=== PATIENT | male | born 1955 | race Caucasian/White ===

== ENCOUNTER 2019-09-17 17:51 | Emergency (ER) | payer BC, OTHER ==
--- NOTE | 2019-09-17 18:10 | ER Document Report ---
ED Medical Screen (RME) - General Chief Complaint: Chest Pain Stated Complaint: CHEST PAIN,NECK PAIN,ABDOMINAL PAIN Time Seen by Provider: 09/17/19 18:05 Primary Care Provider: NAY DE LEÓN NP [Primary Care Provider] - Follow up as needed Mode of Arrival: Ambulatory Information source: Patient Notes: 64-year-old male presented to ED for complaint of chest pain x2 hours and abdominal pain for the last 3 days. He states the chest pain is epigastric a level 2/5 and achy. His upper abdominal pain is a 5 to get worse sometimes. It is in the upper abdomen. He denies any nausea or vomiting. He states the chest pain radiates up to the neck on the left side. He has had 4 cardiac cath and 3 cardiac stents he has a history of high blood pressure cholesterol and reflux. He states his sister at age 72 for cardiac complications. States he has a heavy family history of cardiac problems. States he took Mylanta before coming to the emergency room with no relief. I have greeted and performed a rapid initial assessment of this patient. A comprehensive ED assessment and evaluation of the patient, analysis of test results and completion of medical decision making process will be conducted by an additional ED providers. - Related Data Allergies/Adverse Reactions: No Known Allergies Allergy (Verified 02/25/13 09:58) Past Medical History - Past Medical History Cardiac Medical History: Reports: Hx Atrial Fibrillation, Hx Coronary Artery Disease, Hx Hypercholesterolemia, Hx Hypertension Traumatic Medical History: Reports: Hx Fractures - left wrist Past Surgical History: Reports: Hx Cardiac Catheterization - 3 stents, Hx Orthopedic Surgery - left and right hip replacement - Immunizations Hx Diphtheria, Pertussis, Tetanus Vaccination: No Doctor's Discharge - Discharge Referrals: NAY DE LEÓN NP [Primary Care Provider] - Follow up as needed
[2019-09-17] MEDS ORDERED: ASPIRIN 81 MG TABLET, CHEWABLE PO ONE (18:11)
[2019-09-17] MEDS ORDERED: ASPIRIN 81 MG TABLET, CHEWABLE ONE (18:11)
[2019-09-17 18:49] LABS: ABSOLUTE EOSINOPHILS # (AUTO) 0.2 10^3/uL (0.0-0.6); ABSOLUTE LYMPHOCYTES (AUTO) 1.5 10^3/uL (0.5-4.7); ABSOLUTE MONOCYTES (AUTO) 0.9 10^3/uL (0.1-1.4); ABSOLUTE NEUT (AUTO) 5.9 10^3/uL (1.7-8.2); BASOPHILS % (AUTO) 0.6 % (0-2); EOSINOPHILS % (AUTO) 2.2 % (0-6); HEMATOCRIT 46.4 % (37.9-51.0); LYMPHOCYTES % (AUTO) 17.8 % (13-45); MEAN CORPUSCULAR HEMOGLOBIN 33.7 pg (27.0-33.4); MEAN CORPUSCULAR HGB CONC 34.4 g/dL (32.0-36.0); MEAN CORPUSCULAR VOLUME 98 fl (80-97); MONOCYTES % (AUTO) 10.5 % (3-13); PLATELET COUNT 206 10^3/uL (150-450); RED BLOOD COUNT 4.74 10^6/uL (4.35-5.55); RED CELL DISTRIBUTION WIDTH 13.3 % (11.5-14.0); SEGMENTED NEUTROPHILS % (AUTO) 68.9 % (42-78); TOTAL CELLS COUNTED % (AUTO) 100 %; WHITE BLOOD COUNT 8.6 10^3/uL (4.0-10.5)
[2019-09-17 19:07] LABS: ALBUMIN 4.2 g/dL (3.5-5.0); ALKALINE PHOSPHATASE 106 U/L (38-126); ANION GAP 9 (5-19); ASPARTATE AMINO TRANSFERASE 29 U/L (17-59); BILIRUBIN,DIRECT 0.1 mg/dL (0.0-0.4); BILIRUBIN,TOTAL 0.5 mg/dL (0.2-1.3); BLOOD UREA NITROGEN 19 mg/dL (7-20); CALCIUM 9.3 mg/dL (8.4-10.2); CARBON DIOXIDE 30 mmol/L (22-30); CHLORIDE 99 mmol/L (98-107); GLUCOSE 110 mg/dL (75-110); POTASSIUM 4.7 mmol/L (3.6-5.0); TOTAL PROTEIN 7.3 g/dL (6.3-8.2)
--- NOTE | 2019-09-17 19:20 | RADIOLOGY REPORT (SQ) ---
EXAM DESCRIPTION: CHEST SINGLE VIEW COMPLETED DATE/TIME: 09/17/2019 7:02 pm REASON FOR STUDY: chest pain COMPARISON: AP chest 09/09/2013, 07/27/2010 EXAM PARAMETERS: NUMBER OF VIEWS: One view. TECHNIQUE: Single frontal radiographic view of the chest acquired. RADIATION DOSE: NA LIMITATIONS: Lordotic portable chest film FINDINGS: LUNGS AND PLEURA: No opacities, masses or pneumothorax. No pleural effusion. MEDIASTINUM AND HILAR STRUCTURES: No masses. Contour normal. HEART AND VASCULAR STRUCTURES: Heart normal in size. Normal vasculature. BONES: Old right clavicle fracture HARDWARE: None in the chest. OTHER: No other significant finding. IMPRESSION: NO ACUTE RADIOGRAPHIC FINDING IN THE CHEST. TECHNICAL DOCUMENTATION: JOB ID: [id number] [employer]- All Rights Reserved Reading location - IP/workstation name: [email or web address]
[2019-09-17] MEDS ORDERED: HYDROMORPHONE HCL INJ/PF 2 MG/ML AMPULE IV ONE ×2 (19:30→20:18)
[2019-09-17] MEDS ORDERED: ONDANSETRON HCL INJ/PF 4 MG/2 ML SDV IV ONE (19:30)
[2019-09-17] MEDS ORDERED: NORMAL SALINE 1000 ML 1,000 ML IV ONE ×3 (19:30→22:34)
--- NOTE | 2019-09-17 21:06 | ER Document Report ---
ED General - General Mode of Arrival: Ambulatory - Related Data Home Medications: see med list <JEFF RUSHING - Last Filed: 09/17/19 21:03> <AMY JEFFERS - Last Filed: 09/18/19 04:28> - General Chief Complaint: Chest Pain Stated Complaint: CHEST PAIN,NECK PAIN,ABDOMINAL PAIN Time Seen by Provider: 09/17/19 18:05 Primary Care Provider: NAY DE LEÓN NP [Primary Care Provider] - Follow up as needed Notes: 64-year-old male presents emergency department complaining of severe right upper quadrant abdominal pain starting Wednesday but worsening and radiating to his chest starting today. Patient states that it worsens with all foods, it decreases with rest and is not associated with any nausea, vomiting or fevers, is unrelieved by Mylanta. Patient does have a cardiac history and this does not feel similar to the symptoms he was having prior to getting any of his stents, has never had an actual [place]. (JEFF RUSHING) - Related Data Allergies/Adverse Reactions: pregabalin [From Lyrica] Allergy (Verified 09/17/19 18:14) Hallucinations Past Medical History - General Information source: Patient - Social History Smoking Status: Never Smoker Frequency of alcohol use: Social Drug Abuse: None Family History: None Patient has suicidal ideation: No Patient has homicidal ideation: No - Past Medical History Cardiac Medical History: Reports: Hx Atrial Fibrillation, Hx Coronary Artery Disease, Hx Hypercholesterolemia, Hx Hypertension Traumatic Medical History: Reports: Hx Fractures - left wrist Past Surgical History: Reports: Hx Cardiac Catheterization - 3 stents, Hx Orthopedic Surgery - left and right hip replacement - Immunizations Hx Diphtheria, Pertussis, Tetanus Vaccination: No <JEFF RUSHING - Last Filed: 09/17/19 21:03> Review of Systems - Review of Systems Constitutional: No symptoms reported Cardiovascular: See HPI, Chest pain Respiratory: No symptoms reported Gastrointestinal: See HPI, Abdominal pain. denies: Nausea, Vomiting -: Yes All other systems reviewed and negative <JEFF RUSHING - Last Filed: 09/17/19 21:03> Physical Exam - Vital signs Interpretation: Hypertensive <JEFF RUSHING - Last Filed: 09/17/19 21:03> <AMY JEFFERS - Last Filed: 09/18/19 04:28> - Vital signs Vitals: Temp Pulse Resp BP Pulse Ox 97.6 F 72 16 151/81 H 99 09/17/19 18:01 09/17/19 18:01 09/17/19 18:01 09/17/19 18:01 09/17/19 18:01 - Notes Notes: GENERAL: Alert, interacts well. No acute distress until he sits up and bends forward and then he has pain. HEAD: Normocephalic, atraumatic EYES: Pupils equal, round and reactive to light, extraocular movements intact. ENT: Oral mucosa moist, tongue midline. NECK: Full range of motion, supple, trachea midline. LUNGS: Clear to auscultation bilaterally, no wheezes, rales or rhonchi, no respiratory distress. HEART: Regular rate and rhythm, no murmurs, gallops, rubs. ABDOMEN: Soft, right upper quadrant tenderness to palpation, moderate guarding, positive Headley sign, no rigidity, small amount of rebound, bowel sounds present in all 4 quadrants. EXTREMITIES: Moves all 4 extremities spontaneously, no edema, radial and dorsalis pedis pulses 2/4 bilaterally. No cyanosis. NEUROLOGICAL: Alert and oriented x3, normal speech, biceps and patellar DTRs 2+ bilaterally. PSYCH: Normal mood, normal affect. SKIN: Warm, Dry, normal turgor, no rashes or lesions noted. (JEFF RUSHING) I assumed care of this patient at 9 PM chart reviewed and patient examined. Patient presents emergency [place] right upper quadrant pain going on for the past 2 days. Is been fairly constant but does seem to get worse when he eats. Any nausea or vomiting with this and no fevers. No previous history of gallb ladder disease. Said today the pain radiates to the epigastric area but it really not go up into his chest he denies any chest pain or shortness of breath does report he has some pain to the left side of his neck today. Had 2 episodes that were very brief and seem to be associated with movements again he denies any chest pain. He does report that he will occasionally get anginal symptoms which is substernal and nonradiating His exam his vital signs were noted. Chest is clear heart is regular rate and rhythm abdomen reveals positive bowel sounds with moderate tenderness in the right upper quadrant and a positive Headley's Labs were reviewed EKG shows a normal sinus rhythm Bladder sludge but no gallbladder wall thickening or cholecystitis CT of the abdomen and pelvis are unremarkable (AMY JEFFERS) Course - Laboratory Result Diagrams: 09/17/19 18:35 09/17/19 18:35 <JEFF RUSHING - Last Filed: 09/17/19 21:03> - Laboratory Result Diagrams: 09/17/19 18:35 09/17/19 18:35 <AMY JEFFERS - Last Filed: 09/18/19 04:28> - Re-evaluation Re-evalutation: 09/17/19 21:06 CBC unremarkable, CMP unremarkable, lipase normal, troponin negative, chest x- ray shows no acute process. I suspect biliary pathology, patient is in ultrasound now. (JEFF RUSHING) 09/18/19 04:23 ED patient is remained stable required 2 doses of Dilaudid. After reviewing ultrasound was also went back and evaluated the patient. He still has significant tenderness right upper quadrant with positive Headley's. Following this I discussed case with general surgery including the ultrasound findings. He requested we obtain a CT of the abdomen and pelvis oral and contrast there is time patient has had serial exams abdominal pain is improved significantly and almost completely resolved. Medical decision making patient presents with right upper quadrant pain and pr obably has some biliary colic. He is feeling better his laboratory studies are unremarkable and I think at this point he can be discharged home. To be given instruction for biliary colic. Clear liquids for 8 to 12 hours then bland diet treated with Vicodin and Zofran and 1 about the side effects medication the number for general surgery to follow-up within 2 to 3 days return for increasing pain nausea or vomiting or fever v patient never really had any chest pain 09/18/19 04:27 Patient 1 dictation was done using voice recognition software. There may be some grammatical errors which are unintentional I discussed results of laboratory findings and diagnostic test with patient/family. The treatment plan was explained and I reviewed the discharge instructions with them. Questions were answered. The patient/family verbalizes understanding Addendum after reviewing the chart I realized I did not give the patient the number for general surgery to follow-up. We will have fabiana Gomez contact patient (AMY JEFFERS) - Vital Signs Vital signs: Temp Pulse Resp BP Pulse Ox 97.6 F 72 14 138/84 H 99 09/17/19 18:01 09/17/19 18:01 09/18/19 03:42 09/18/19 03:42 09/18/19 03:42 - Laboratory Laboratory results interpreted by me: 09/17/19 18:35 MCV 98 H MCH 33.7 H Discharge <JEFF RUSHING - Last Filed: 09/17/19 21:03> <AMY JEFFERS - Last Filed: 09/18/19 04:28> - Discharge Clinical Impression: Biliary colic symptom Condition: Good Disposition: HOME, SELF-CARE Instructions: Abdominal Pain ([facility]), Gallbladder Disease ([facility]) Additional Instructions: Please review the discharge instructions, they will tell you about your disease/injury and what you need to return to the ED for Return to the ED if you feel worse or can follow-up with your family doctor Stay on clear liquids for 8 hours then a bland diet for the next 3 to 5 days avoiding fatty greasy foods Follow-up with general surgeon in 2 to 3 days The pain medications may cause drowsiness. Be careful if you are using crutches. Do not drive or operate machinery. Do not take Tylenol with the pain medication Return for fever greater than 101 increasing pain nausea vomiting Your blood pressure was elevated today needs to be rechecked again in 1 to 2 weeks to determine if need to be on medication or have your medications adjusted. Untreated hypertension can cause heart attack stroke and kidney failure Prescriptions: Hydrocodone/Acetaminophen [[place] 5-325 mg Tablet] 1 - 2 tab PO ASDIR PRN #12 tablet PRN Reason: Ondansetron HCl [Zofran 4 mg Tablet] 1 tab PO Q4H PRN #10 tablet PRN Reason: Forms: Return to Work Referrals: NAY DE LEÓN NP [Primary Care Provider] - Follow up as needed
--- NOTE | 2019-09-17 22:15 | RADIOLOGY REPORT (SQ) ---
EXAM DESCRIPTION: US ABDOMEN LIMITED COMPLETED DATE/TME: 09/17/2019 19:30 CLINICAL HISTORY: 64 years, Male, RUQ pain, worse with food, TTP RUQ COMPARISON: None. TECHNIQUE: Limited right upper quadrant ultrasound LIMITATIONS: None. FINDINGS: Echogenic appearance to the liver consistent with fatty infiltrative change. Sludge in the gallbladder lumen. Negative sonographic Headley sign. No gallbladder wall thickening or pericholecystic fluid. The CBD measures 4 mm. Visualized pancreas, abdominal aorta, inferior vena cava, right kidney unremarkable. No ascites IMPRESSION: Fatty infiltrative change to the liver. Sludge in the gallbladder lumen. No evidence for acute cholecystitis copyright 2010 [employer]- All Rights Reserved
--- NOTE | 2019-09-18 02:56 | RADIOLOGY REPORT (SQ) ---
CLINICAL HISTORY: RUQ abd pain COMPARISON: None. TECHNIQUE: CT ABDOMEN PELVIS WITH IV CONTRAST on 09/17/2019 12:00 AM PRE BILLING SPECIALIST This exam was performed according to our departmental dose-optimization program, which includes automated exposure control, adjustment of the mA and/or kV according to patient size and/or use of iterative reconstruction technique. FINDINGS: Lower lungs are clear. Abdomen: The liver is normal in appearance. There is no biliary dilatation. Gallbladder is normally distended. The pancreas and spleen are normal in appearance. The adrenal glands and kidneys are unremarkable. Abdominal aorta is normal in course and caliber without aneurysm. There is no free air. There is no retroperitoneal adenopathy. Pelvis: There is no bowel obstruction. Urinary bladder is unremarkable. There is no free fluid. Appendix is normal. Skeleton: There are no acute osseous findings. No suspicious bony lesions. Bilateral hip arthroplasties are present. IMPRESSION: No definite acute inflammatory process.
[2019-09-18] MEDS ORDERED: HYDROCODONE/ACETAMINOPHEN 5-325 MG (6 TAB/ER DISP) PO PRN (03:35)
[2019-09-18 03:55] VITALS: BP 138/84
--- NOTE | 2019-09-18 22:29 | EKG REPORT ---
SEVERITY:- NORMAL ECG - SINUS RHYTHM : Confirmed by: Lilia Irvin MD 18-Sep-2019 22:28:37
== END 2019-09-18 03:55 | disposition home or self-care (01) ==
LOC: ER 17:51
DX: K82.8 Other specified diseases of gallbladder (principal); R10.11 Right upper quadrant pain; R10.811 Right upper quadrant abdominal tenderness; I10 Essential (primary) hypertension; Z95.5 Presence of coronary angioplasty implant and graft; Z88.6 Allergy status to analgesic agent; I25.10 Atherosclerotic heart disease of native coronary artery without angina pectoris; M54.2 Cervicalgia
CPT/HCPCS: 93005; 99285; 36415; 83690; 83735; 85025; 80053; 84484; 71045; 76705; 74177; 93010; J1170; J2405; J7030

== ENCOUNTER 2019-12-05 15:48 | Emergency (ER) | payer OTHER ==
[2019-12-05] MEDS ORDERED: DIPH/PERTUSS(ACELL)/TETANUS VAC/PF 0.5 ML SYR (>=10YO) IM ONE (16:59)
[2019-12-05] MEDS ORDERED: IBUPROFEN 800 MG TABLET PO ONE (16:59)
--- NOTE | 2019-12-05 17:01 | ER Document Report ---
ED Medical Screen (RME) - General Chief Complaint: Finger Injury Stated Complaint: LACERATION/RIGHT PINKY FINGER Time Seen by Provider: 12/05/19 16:50 Primary Care Provider: NAY DE LEÓN NP [Primary Care Provider] - Follow up as needed Notes: Patient is a 64-year-old male who presents emergency department with a chief complaint of right pinky finger injury. 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 Patient reports originally went to [facility] first but they sent him here to have an x-ray. Patient reports his tetanus shot is not up-to-date. Patient reports they told him the tip of his finger was hanging off. - Related Data Allergies/Adverse Reactions: pregabalin [From Lyrica] Allergy (Verified 12/05/19 16:50) Hallucinations Past Medical History - Past Medical History Cardiac Medical History: Reports: Hx Atrial Fibrillation, Hx Coronary Artery Disease, Hx Hypercholesterolemia, Hx Hypertension Traumatic Medical History: Reports: Hx Fractures - left wrist Past Surgical History: Reports: Hx Cardiac Catheterization - 3 stents, Hx Orthopedic Surgery - left and right hip replacement - Immunizations Hx Diphtheria, Pertussis, Tetanus Vaccination: No Physical Exam - Vital signs Vitals: Temp Pulse Resp BP Pulse Ox 98.4 F 75 16 140/79 H 100 12/05/19 15:53 12/05/19 15:53 12/05/19 15:53 12/05/19 15:53 12/05/19 15:53 Course - Re-evaluation Re-evalutation: 12/05/19 17:00 Patient has a deformity and laceration through the nail bed. Constant oozing of blood. Patient has sensation distal to the injury. Patient can flex and extend at the DIP and PIP joint. Wet gauze dressing was placed. Will update tetanus, did offer the patient a narcotic oral medication. He reports he is driving, will give ibuprofen and obtain an x-ray. I have greeted and performed a rapid initial assessment of this patient. A comprehensive ED assessment and evaluation of the patient, analysis of test results and completion of the medical decision making process will be conducted by additional ED providers. - Vital Signs Vital signs: Temp Pulse Resp BP Pulse Ox 98.4 F 75 16 140/79 H 100 12/05/19 15:53 12/05/19 15:53 12/05/19 15:53 12/05/19 15:53 12/05/19 15:53 Doctor's Discharge - Discharge Referrals: NAY DE LEÓN NP [Primary Care Provider] - Follow up as needed
--- NOTE | 2019-12-05 17:31 | RADIOLOGY REPORT (SQ) ---
EXAM DESCRIPTION: FINGER RIGHT COMPLETED DATE/TIME: 12/05/2019 5:17 pm REASON FOR STUDY: right 5th digit injury, slammed in car door COMPARISON: None. NUMBER OF VIEWS: Three views. TECHNIQUE: AP, lateral, and oblique images acquired of the right fifth finger. LIMITATIONS: None. FINDINGS: MINERALIZATION: Normal. BONES: The density that projects anterior and superior to the distal 5th phalanx could represent an a vulsed fracture fragment. There is no dislocation of the IP joints. SOFT TISSUES: Evaluation of soft tissues is limited due to overlying bandage material. OTHER: No other finding. IMPRESSION: The density that projects anterior and superior to the distal 5th phalanx could represen t an avulsed fracture fragment. There is no dislocation of the IP joints. COMMENT: SITE OF TRAUMA/COMPLAINT MARKED/STAMP COMPLETED: NO. TECHNICAL DOCUMENTATION: JOB ID: [id number] 2010 [employer]- All Rights Reserved Reading location - IP/workstation name: [email or web address]
[2019-12-05] MEDS ORDERED: LIDOCAINE 1% INJ-PF (10 MG/ML) 30 ML SDV INJ ONE (18:30)
--- NOTE | 2019-12-05 18:31 | ER Document Report ---
ED Wound - General Chief Complaint: Laceration Stated Complaint: LACERATION/RIGHT PINKY FINGER Time Seen by Provider: 12/05/19 16:50 Primary Care Provider: TANYA OGLESBY MD [ACTIVE PROVISIONAL STAFF] - Follow up tomorrow NAY DE LEÓN NP [Primary Care Provider] - Follow up tomorrow CLAIRE KUHN JR, DO [ACTIVE PROVISIONAL STAFF] - Follow up tomorrow NO BIRD DO [ACTIVE STAFF] - Follow up tomorrow Notes: Patient is a 64-year-old male who presents to the emergency department with a laceration to his right distal fifth finger. 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 Patient states that the tip of his finger is coming off. Patient received his tetanus vaccine here in the emergency department. He has a history of atrial fi brillation and hypertension. He is currently on aspirin. Denies any other blood thinner use. TRAVEL OUTSIDE OF THE [place] IN LAST 30 DAYS: No - Related Data Allergies/Adverse Reactions: pregabalin [From Lyrica] Allergy (Verified 12/05/19 16:50) Hallucinations Past Medical History - General Information source: Patient - Social History Smoking Status: Never Smoker Family History: None Patient has suicidal ideation: No Patient has homicidal ideation: No - Past Medical History Cardiac Medical History: Reports: Hx Atrial Fibrillation, Hx Coronary Artery Disease, Hx Hypercholesterolemia, Hx Hypertension Traumatic Medical History: Reports: Hx Fractures - left wrist Past Surgical History: Reports: Hx Cardiac Catheterization - 3 stents, Hx Orthopedic Surgery - left and right hip replacement - Immunizations Hx Diphtheria, Pertussis, Tetanus Vaccination: No Review of Systems - Review of Systems Notes: REVIEW OF SYSTEMS: CONSTITUTIONAL : Denies recent illness. Denies recent unintentional weight loss. Denies fever, chills, or sweats. EENT: Denies eye, ear, throat, or mouth pain, discharge, or symptoms. Denies nasal or sinus congestion. CARDIOVASCULAR: Denies chest pain. RESPIRATORY: Denies shortness of breath, cough, congestion, difficulty breathing, or wheezing. GASTROINTESTINAL: Denies nausea, vomiting, and diarrhea. Denies abdominal pain. Denies constipation. GENITOURINARY: Denies difficulty urinating, burning, blood in urine, urgency or frequency. MUSCULOSKELETAL: Denies neck and back pain. See HPI. SKIN: See HPI. HEMATOLOGIC : Denies easy bruising or bleeding. LYMPHATIC: Denies swollen, painful, enlarged glands. NEUROLOGICAL: Denies no numbness or tingling denies weakness. Denies headache. Denies altered mental status. Denies alteration in speech. PSYCHIATRIC: Denies stress, anxiety, alteration in sleep patterns, or depression. All other systems reviewed and negative. Physical Exam - Vital signs Vitals: Temp Pulse Resp BP Pulse Ox 98.4 F 75 16 140/79 H 100 12/05/19 15:53 12/05/19 15:53 12/05/19 15:53 12/05/19 15:53 12/05/19 15:53 - Notes Notes: PHYSICAL EXAMINATION: GENERAL: Appears well, healthy, well-nourished, no acute distress. HEAD: Normocephalic, atraumatic. EYES: PERRL, conjunctiva normal, all extraocular movements intact, sclera nonicteric ENT: Moist mucous membranes. NECK: Supple, no noticeable swelling, redness, rash. Normal range of motion. LUNGS: Equal breath sounds bilaterally and clear to auscultation. No wheezes rales or rhonchi. CARDIOVASCULAR: S1-S2, regular rate, regular rhythm. Radial pulses 2+, normal. ABDOMEN: Normoactive bowel sounds. Soft, nontender, no guarding, no rebound tenderness, and no masses palpated. EXTREMITIES: Patient able flex DIP joint on right 5th digit. NEUROLOGICAL: Moves all extremities upon command. Strength 5/5 in all extremities. PSYCH: Normal mood, normal affect. SKIN: Warm, dry. Normal skin turgor. 2 cm Laceration to right dorsal distal 5th digit with nail avulsion. Course - Re-evaluation Re-evalutation: 12/05/19 20:11 Patient's finger was repaired here in the emergency department. He is able to flex and extend his DIP joint. I have a very low suspicion for a tendon injury. The nail was partially avulsed. It was placed back into place. Good blood flow noted to the area. Radiologist also notes a possible avulsion fracture to distal fifth digit. Patient will follow-up with orthopedics in regards to this visit. He will be started on Augmentin. He will also be sent home with [place] to help with pain. Follow-up precautions were given. Verbal discharge instructions were given to the patient. They verbalized understanding. They are stable for discharge. - Vital Signs Vital signs: Temp Pulse Resp BP Pulse Ox 97.5 F 63 20 134/74 H 99 12/05/19 20:26 12/05/19 20:26 12/05/19 20:26 12/05/19 20:26 12/05/19 20:26 Procedures - Laceration/Wound Repair Right Distal Finger 5th digit Wound length (cm): 2 Wound's Depth, Shape: Flap, Nail-avulsed Laceration pre-procedure: Sterile PPE donned, Sterile drapes applied, Shur-Clens applied Anesthetic type: 1% Lidocaine Volume Anesthetic (mLs): 10 - digital block Wound explored: Clean, No foreign body removed Irrigated w/ Saline (mLs): 50 Wound Repaired With: Sutures Suture Size/Type: 5:0, Nylon Number of Sutures: 5 Post-procedure wound care: Sterile dressing applied, Splint applied - finger splint Post-procedure NV exam normal: Yes Complications: Yes Hands back picture: 1 - Laceration with partial nail avulsion Discharge - Discharge Clinical Impression: Avulsion fracture Finger laceration Qualifiers: Encounter type: initial encounter Finger: ring finger Damage to nail status: with damage Foreign body presence: without foreign body Laterality: right Qualified Code(s): S61.314A - Laceration without foreign body of right ring f agustín with damage to nail, initial encounter Condition: Stable Disposition: HOME, SELF-CARE Instructions: Laceration Care ([facility]), Soap Cleansing ([facility]), Tetanus Immunization Given ([facility]) Additional Instructions: You were seen today in the emergency department for a laceration to your right fifth finger. The laceration was repaired. Please follow-up with orthopedics and your primary care provider tomorrow or as soon as you can. You are being placed on antibiotics. Please take your antibiotics as prescribed. If you develop pus, redness, or any signs of infection, please return to the emergency department. You also have a small avulsion fracture. You are being placed in a splint. Please keep the splint on for protection. You can take the hydrocodone/acetaminophen every 4-6 hours as needed for pain. You received your first dose of antibiotics here in the emergency department. Your pain medication and antibiotic were electronically sent to [facility]. Prescriptions: Amoxicillin/Potassium Clav [Augmentin 875-125 Tablet] 1 tab PO BID 7 Days #14 tab Hydrocodone/Acetaminophen [[place] 5-325 Tablet] 1 each PO ASDIR PRN #20 tablet PRN Reason: Forms: Return to Work Referrals: NAY DE LEÓN NP [Primary Care Provider] - Follow up tomorrow CLAIRE KUHN JR, DO [ACTIVE PROVISIONAL STAFF] - Follow up tomorrow TANYA OGLESBY MD [ACTIVE PROVISIONAL STAFF] - Follow up tomorrow NO BIRD DO [ACTIVE STAFF] - Follow up tomorrow
[2019-12-05] MEDS ORDERED: AMOXICILLIN TRIHYD 250 MG CAPSULE PO ONE (20:14)
[2019-12-05] MEDS ORDERED: HYDROCODONE/ACETAMINOPHEN 5-325 MG (6 TAB/ER DISP) PO PRN (20:14)
[2019-12-05] MEDS ORDERED: AMOXICILLIN TR/POT CLAVULANATE 500-125 MG TAB PO ONE (20:14)
[2019-12-05 20:27] VITALS: BP 134/74
== END 2019-12-05 20:51 | disposition home or self-care (01) ==
LOC: ER 15:48
DX: S61.314A Laceration without foreign body of right ring finger with damage to nail, initial encounter (principal); W26.9XXA Contact with unspecified sharp object(s), initial encounter; Y99.0 Civilian activity done for income or pay; I48.91 Unspecified atrial fibrillation; I25.10 Atherosclerotic heart disease of native coronary artery without angina pectoris; E78.00 Pure hypercholesterolemia, unspecified; I10 Essential (primary) hypertension; Z23 Encounter for immunization; Z96.641 Presence of right artificial hip joint
CPT/HCPCS: 73140; 90715; 12001; J3490; 90471; 99283